=== PATIENT | male | born 1990 | race Caucasian/White ===

== ENCOUNTER 2017-06-22 16:53 | Emergency (ER) | payer OTHER | END 2017-06-22 18:44 | disposition home or self-care (01) | LOC: D.ER 16:53 | DX: L03.116 Cellulitis of left lower limb (principal) ==

== ENCOUNTER 2018-02-10 17:00 | Emergency (ER) | payer OTHER ==
[~2018-02-10] VITALS: Ht 190.5 cm; Wt 106.8 kg
[2018-02-10 17:14] VITALS: Ht 190.5 cm; Wt 106.8 kg
[2018-02-10] MEDS ORDERED: HYDROCORTISONE30 G9 TOPICAL (18:02)
[2018-02-10] MEDS ORDERED: ANUSOL-HC25 MG RC (18:02)
[2018-02-10 18:14] VITALS: BP 129/87
== END 2018-02-10 18:16 | disposition home or self-care (01) ==
LOC: D.ER 17:00
DX: K64.8 Other hemorrhoids (principal)

== ENCOUNTER 2018-02-24 17:00 | Emergency (ER) | payer OTHER ==
[~2018-02-24] VITALS: Ht 190.5 cm; Wt 106.8 kg
[~2018-02-24 17:00] MED LIST: ANUSOL-HC25 MG RC; HYDROCORTISONE30 G9 TOPICAL
[2018-02-24 17:08] VITALS: Ht 190.5 cm; Wt 106.8 kg
[2018-02-24] MEDS ORDERED: ANUSOL-HC25 MG RC (18:00)
[2018-02-24 18:38] VITALS: BP 128/83
== END 2018-02-24 18:38 | disposition home or self-care (01) ==
LOC: D.ER 17:00
DX: K64.9 Unspecified hemorrhoids (principal); K62.89 Other specified diseases of anus and rectum

== ENCOUNTER 2018-04-09 17:14 | Emergency (ER) | payer SELFPAY ==
[~2018-04-09] VITALS: Ht 190.5 cm; Wt 108.9 kg
[2018-04-09 17:23] VITALS: Ht 190.5 cm; Wt 108.9 kg
[2018-04-09 20:09] VITALS: BP 141/77
== END 2018-04-09 20:22 | disposition home or self-care (01) ==
LOC: D.ER 17:14
DX: B35.6 Tinea cruris (principal); K62.5 Hemorrhage of anus and rectum